=== PATIENT | male | born 2000 | race Caucasian/White ===

== ENCOUNTER 2021-06-09 20:37 | Emergency (ER) | payer SELFPAY ==
[~2021-06-09] VITALS: Ht 154.9 cm; Wt 48.6 kg
[2021-06-09 20:50] VITALS: BP 144/74
--- NOTE | 2021-06-09 20:50 | NUR ---
to bed ambulatory
--- NOTE | 2021-06-09 21:16 | NUR ---
Dr. Garcia examining patient.
[2021-06-09 21:35] VITALS: BP 144/74
--- NOTE | 2021-06-09 21:36 | NUR ---
Patient discharged with v/s stable. Written and verbal after care instructions given and explained. Patient verbalized understanding. Ambulatory with steady gait. All questions addressed prior to discharge. Advised to follow up with PMD.
--- NOTE | 2021-06-09 21:36 | NUR ---
PT SEEN AND ASSESSED BY ERMD. NO NURSING INTERVENTIONS NEEDED.
== END 2021-06-09 21:36 | disposition home or self-care (01) ==
LOC: MED 20:37
DX: K40.91 Unilateral inguinal hernia, without obstruction or gangrene, recurrent (principal)
CPT/HCPCS: 99281